=== PATIENT | male | born 1990 | race Caucasian/White ===

== ENCOUNTER 2020-11-23 17:30 | Emergency (ER) | payer OTHER ==
[~2020-11-23] VITALS: Ht 162.6 cm; Wt 54.5 kg
[2020-11-23 18:52] LABS: BASOPHILS % (AUTO) 0.4 % (0-1); EOSINOPHILS # (AUTO) 0.1 X10'3 (0-0.9); EOSINOPHILS % (AUTO) 1.5 % (0-6); HEMATOCRIT 42.7 % (42.0-52.0); HEMOGLOBIN 14.6 g/dl (14.0-17.9); LYMPHOCYTES % (AUTO) 37.5 % (21-51); MEAN CORPUSCULAR HEMOGLOBIN 33.6 PG (27.0-31.0); MEAN CORPUSCULAR HGB CONC 34.2 g/dL (33.0-36.5); MEAN CORPUSCULAR VOLUME 98.2 FL (78-98); MEAN PLATELET VOLUME 6.6 FL (7.4-10.4); MONOCYTES # (AUTO) 0.6 X10'3 (0-0.9); MONOCYTES % (AUTO) 7.6 % (2-12); NEUTROPHILS # (AUTO) 4.3 X10'3 (1.8-7.7); PLATELET COUNT 416 X10'3 (140-440); RED BLOOD COUNT 4.35 X10'6 (4.70-6.10); RED CELL DISTRIBUTION WIDTH 15.4 % (11.5-14.5); WHITE BLOOD COUNT 8.1 X10'3 (4.5-11.0)
[2020-11-23 19:20] LABS: ALANINE AMINOTRANSFERASE 161 U/L (12-78); ALBUMIN 3.3 G/DL (3.4-5.0); ALBUMIN/GLOBULIN RATIO 0.5 (1.1-1.5); ALKALINE PHOSPHATASE 373 IU/L (46-116); ANION GAP 12 (8-16); ASPARTATE AMINO TRANSFERASE 170 U/L (10-37); BILIRUBIN,TOTAL 0.4 MG/DL (0.1-1.0); BLOOD UREA NITROGEN 5 MG/DL (7-18); BUN/CREATININE RATIO 6.2 (5.4-32.0); CALCIUM 8.3 MG/DL (8.5-10.1); CHLORIDE 105 MMOL/L (99-107); CREATININE 0.81 MG/DL (0.60-1.10); GLUCOSE 102 MG/DL (70-104); POTASSIUM 3.7 MMOL/L (3.5-5.1); SODIUM 144 MMOL/L (135-145); TOTAL CARBON DIOXIDE 26.7 MMOL/L (24-32); eGFR > 90 ML/MIN
[2020-11-23 19:21] LABS: ETHANOL 0.355 GM/DL (0.0-0.010)
[2020-11-23 19:39] VITALS: BP 113/80
== END 2020-11-23 19:40 | disposition home or self-care (01) ==
LOC: ER 17:30
DX: R04.2 Hemoptysis (principal); K92.0 Hematemesis; H92.01 Otalgia, right ear; Z72.89 Other problems related to lifestyle
CPT/HCPCS: 36415; 71045; 80053; 80320; 85025; 99284

== ENCOUNTER 2021-11-05 20:05 | Inpatient (IN) | payer OTHER ==
[~2021-11-05] VITALS: Ht 160 cm; Wt 56.4 kg
[2021-11-05] MEDS ORDERED: acetaminophen 325mg tablet PO PRN ×2 (21:45)
[2021-11-05] MEDS ORDERED: magnesium hydroxide 30ml (MOM) UD suspension PO PRN (21:45)
[2021-11-05] MEDS ORDERED: loperamide 2mg capsule PO PRN (21:45)
[2021-11-05] MEDS ORDERED: mag hydrox/Alum hydrox/simeth 30ml oral suspension PO PRN (21:45)
[2021-11-05] MEDS ORDERED: prazosin 1mg capsule PO ONE (22:05)
[2021-11-05] MEDS ORDERED: GABA600T13 PO (22:05)
[2021-11-05] MEDS ORDERED: GABA300C PO (22:05)
[2021-11-05] MEDS ORDERED: PER5325T PO (22:05)
[2021-11-05] MEDS ORDERED: PRAZ1CAP5 PO (22:05)
[2021-11-05] MEDS ORDERED: ONDA4TAB12 PO (22:05)
[2021-11-05] MEDS ORDERED: VITA-268 PO (22:05)
[2021-11-05] MEDS ORDERED: CHOL20004 PO (22:05)
[2021-11-05] MEDS ORDERED: CITA20TA28 PO (22:05)
[2021-11-05] MEDS ORDERED: PANT-47 PO (22:05)
[2021-11-05] MEDS ORDERED: METF-436 PO (22:05)
[2021-11-05] MEDS ORDERED: CYAN500T71 PO (22:05)
[2021-11-05] MEDS ORDERED: TRAZ-251 PO (22:05)
[2021-11-05] MEDS ORDERED: gabapentin 300mg capsule PO ONE (22:05)
[2021-11-05 22:06] VITALS: BP 143/99
[2021-11-05] MEDS ORDERED: traZODone 50mg tablet PO ONE (22:15)
[2021-11-05] MEDS ORDERED: traZODone 50mg tablet PO PRN (22:50)
[2021-11-05] MEDS ORDERED: ondansetron 4mg rapidly disintigrating tab PO PRN (22:50)
[2021-11-05] MEDS ORDERED: oxyCODONE/APAP 5-325mg tablet PO PRN (22:50)
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
[2021-11-06] MEDS: citalopram 20mg tablet PO SCH (07:45)
[2021-11-06] MEDS: cholecalciferol (vitamin D3) 1,000 unit (25mcg) tablet PO SCH (07:45)
[2021-11-06] MEDS: gabapentin 300mg capsule PO SCH ×2 (07:46→20:39)
[2021-11-06] MEDS: cyanocobalamin 500mcg tablet PO SCH (07:46)
[2021-11-06] MEDS: metFORMIN 500mg tablet PO SCH ×2 (07:46→17:19)
[2021-11-06] MEDS: pantoprazole 40mg Tablet.DR PO SCH ×2 (07:46→20:38)
[2021-11-06 08:00] VITALS: BP 119/74
[2021-11-06] MEDS ORDERED: non-formulary drug (Vitamin B Complex (B Complex) 1 TAB) PO SCH (08:00)
[2021-11-06 09:41] LABS: HEMOGLOBIN A1C 6.5 % (4.5-6.2)
[2021-11-06 09:44] LABS: CHOL/HDL RATIO 4.6 (0.00-4.99); CHOLESTEROL 166 MG/DL (0-200); HDL CHOLESTEROL 36 MG/DL (35-60); LDL CHOLESTEROL 91 MG/DL (50-100); TRIGLYCERIDES 291 MG/DL (20-135)
[2021-11-06] MEDS ORDERED: MESSAGE TO PHARMACY PO ONE (14:00)
[2021-11-06] MEDS ORDERED: glucagon, human recombinant 1mg kit SUBCUT PRN (14:00)
[2021-11-06] MEDS ORDERED: DEXTROSE 15 GM of carb/4 tabs (each vial/BOTTLE has 4 tablets) PO PRN ×2 (14:00)
[2021-11-06] MEDS ORDERED: insulin Lispro (HumaLOG) vial - multi-dose SQ SCH (14:00)
[2021-11-06] MEDS ORDERED: dextrose 50%-water 50ml dispensing syringe IV PRN ×2 (14:00)
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
[2021-11-06] MEDS: prazosin 1mg capsule PO SCH (20:38)
[2021-11-06] MEDS: insulin glargine (Lantus) pen - multi-dose SQ SCH (20:56)
[2021-11-06 22:00] VITALS: BP 114/71
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
[2021-11-07] MEDS: metFORMIN 500mg tablet PO SCH ×2 (07:40→17:04)
[2021-11-07] MEDS: cholecalciferol (vitamin D3) 1,000 unit (25mcg) tablet PO SCH (07:40)
[2021-11-07] MEDS: citalopram 20mg tablet PO SCH (07:40)
[2021-11-07] MEDS: pantoprazole 40mg Tablet.DR PO SCH ×2 (07:40→20:16)
[2021-11-07] MEDS: gabapentin 300mg capsule PO SCH ×2 (07:40→20:16)
[2021-11-07] MEDS: cyanocobalamin 500mcg tablet PO SCH (07:40)
[2021-11-07] MEDS: naltrexone 50mg tablet PO SCH (08:00)
[2021-11-07 08:16] VITALS: BP 113/67
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
--- NOTE | 2021-11-07 16:10 | NUR ---
[facility] counselor[facility] (ph[facility] [phone] He reported he talked to Js on the phone today and he feels like Js's discharge plan is pretty solid. He is planning on staying with a friend in [facility] and re-engaging with the [facility] for out-patient services until he can get into a rehab. Js told Alex his friend is a licensed master social worker and has been a good support for him. TRINY Dickinson
[2021-11-07 19:00] VITALS: BP 127/84
[2021-11-07] MEDS: prazosin 1mg capsule PO SCH (20:16)
[2021-11-07] MEDS: insulin glargine (Lantus) pen - multi-dose SQ SCH (21:00)
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
[2021-11-08] MEDS: metFORMIN 500mg tablet PO SCH (07:51)
[2021-11-08] MEDS: citalopram 20mg tablet PO SCH (07:51)
[2021-11-08] MEDS: pantoprazole 40mg Tablet.DR PO SCH (07:52)
[2021-11-08] MEDS: naltrexone 50mg tablet PO SCH (07:52)
[2021-11-08] MEDS: cholecalciferol (vitamin D3) 1,000 unit (25mcg) tablet PO SCH (07:52)
[2021-11-08] MEDS: cyanocobalamin 500mcg tablet PO SCH (07:52)
[2021-11-08] MEDS: gabapentin 300mg capsule PO SCH (07:52)
[2021-11-08 08:00] VITALS: BP 129/85
[2021-11-08] MEDS ORDERED: CITA20TA28 PO (12:59)
[2021-11-08] MEDS ORDERED: NALT50TA PO (12:59)
--- NOTE | 2021-11-08 16:56 | NUR ---
Nursing Discharge Note Pt discharged from [facility] at 1632 and picked up by family to go home. Pt in pleasant mood with full range of affect. He denies SI and has been improving since admission. Pt in no acute physical or emotional distress. His belongings were inventoried and returned to him. Pt understands his discharge plan and instructions and did not want nicotine replacement.
== END 2021-11-08 16:51 | disposition home or self-care (01) | DRG 885 ==
LOC: ADULT MH 21:25
PROVIDERS: ADMIT Physician Assistant; ATTEND Physician Assistant
DX: F33.1 Major depressive disorder, recurrent, moderate (principal); T40.2X2A Poisoning by other opioids, intentional self-harm, initial encounter; K85.90 Acute pancreatitis without necrosis or infection, unspecified; F41.9 Anxiety disorder, unspecified; E11.9 Type 2 diabetes mellitus without complications; K21.9 Gastro-esophageal reflux disease without esophagitis; F10.20 Alcohol dependence, uncomplicated; F17.210 Nicotine dependence, cigarettes, uncomplicated; F43.12 Post-traumatic stress disorder, chronic; Y92.89 Other specified places as the place of occurrence of the external cause; Z79.84 Long term (current) use of oral hypoglycemic drugs; Z79.899 Other long term (current) drug therapy; Z90.49 Acquired absence of other specified parts of digestive tract; Z56.0 Unemployment, unspecified; Z71.6 Tobacco abuse counseling
CPT/HCPCS: 36415; 80061; 82948; 83036; 87081; J1815

== ENCOUNTER 2025-03-10 18:26 | Emergency (ER) | payer OTHER ==
[~2025-03-10 18:26] MED LIST: CHOL20004 PO; CITA-178 PO; CYAN500T71 PO; GABA-1405 PO; GABA300C PO; METF-436 PO; NALT50TA5 PO; ONDA-243 PO; PANT-47 PO; PRAZ1CAP5 PO; TRAZ-251 PO; VITA-268 PO
== END 2025-03-10 20:03 | disposition left against medical advice (07) ==
LOC: ER 18:27
DX: N99.518 Other cystostomy complication (principal); Z53.21 Procedure and treatment not carried out due to patient leaving prior to being seen by health care provider